=== PATIENT | female | born 1960 | race Asian ===

== ENCOUNTER 2022-10-08 21:05 | Emergency (ER) | payer OTHER ==
[~2022-10-08] VITALS: Ht 172.7 cm; Wt 72.1 kg
[2022-10-08 21:24] VITALS: BP 152/83; TEMP 97.3
[2022-10-08 21:31] LABS: PLATELET COUNT 210 K/uL (152-353)
[2022-10-08 21:40] LABS: POTASSIUM 3.2 mmol/L (3.6-5.2)
[2022-10-09] MEDS ORDERED: QUETIAPINE25 MG PO (09:33)
[2022-10-09] MEDS ORDERED: NEURONTIN 100M100 MG PO ×2 (09:34→10:36)
[2022-10-09] MEDS ORDERED: BASAGLAR K100 UNIT/M SC ×2 (09:35→10:36)
[2022-10-09] MEDS ORDERED: CLARITIN10 M1 PO ×2 (09:35→10:38)
[2022-10-09] MEDS ORDERED: MIRTAZAPINE PO (09:36)
[2022-10-09] MEDS ORDERED: QUET25TA2 PO (10:35)
[2022-10-09] MEDS ORDERED: NOVOLOG FL100 UNIT/M SC (10:37)
[2022-10-09] MEDS ORDERED: REMERON SOLTAB15 MG PO (10:38)
[2022-10-09] MEDS ORDERED: AMLODIPINE BESYLATE PO (10:38)
== END 2022-10-08 22:40 | disposition still patient (30) ==
LOC: ED 21:05
PROVIDERS: Emergency Medicine Emergency Medical Services
DX: R45.6 Violent behavior (principal); R45.1 Restlessness and agitation
CPT/HCPCS: 36415; 80053; 85027; 87635; 93005; 99283; U0003